=== PATIENT | male | born 1980 | race Caucasian/White ===

== ENCOUNTER 2018-01-27 13:41 | Inpatient (IN) | payer BC ==
[~2018-01-27] VITALS: Ht 185.4 cm; Wt 129.3 kg
[2018-01-27 14:58] LABS: Basophils # (auto) 0.1 uL; Basophils % (auto) 0.9 % (0.0-2.0); Eosinophils # (auto) 0.2 uL; Eosinophils % (auto) 2.2 % (0.0-7.0); Hematocrit 47.6 % (41.0-53.0); Hemoglobin 16.4 g/dL (13.5-17.5); Lymphocytes # (auto) 2.7 uL; Mean Corpuscular Hemoglobin 31.1 pg (28.0-32.0); Mean Corpuscular Hgb Conc. 34.6 g/dL (32.0-36.0); Mean Corpuscular Volume 90.1 fL (80.0-100.0); Monocytes # (auto) 0.6 uL; Monocytes % (auto) 7.2 % (0.0-12.0); Neutrophils # (auto) 4.6 uL; Neutrophils % (auto) 56.7 % (37.0-80.0); Nucleated Red Blood Cells % 0.2 %; Platelet Count (auto) 298 10^3/uL (140-450); Red Blood Cells 5.28 10^6/uL (4.5-5.90); White Blood Cell 8.1 10^3/uL (4.4-10.8)
[2018-01-27 15:15] LABS: Alanine Aminotransferase 40 U/L (16-61); Albumin 3.9 g/dL (3.4-5.0); Anion Gap 10 (5-15); Aspartate Aminotransferase 20 U/L (15-37); BUN/Creatinine Ratio 10.1; Blood Urea Nitrogen 10 mg/dL (7-18); Calcium 8.9 mg/dL (8.5-10.1); Carbon Dioxide 26 mmol/L (21-32); Chloride 106 mmol/L (98-107); GFR African American 109 mL/min; GFR Non-African American 90 mL/min; Glucose 84 mg/dL (74-106); Potassium 4.2 mmol/L (3.5-5.1); Sodium 142 mmol/L (136-145)
[2018-01-27 15:20] LABS: Alkaline Phosphatase 58 U/L (45-117); Bilirubin, Total 0.4 mg/dL (0.2-1.0); Total Protein 7.6 g/dL (6.4-8.2)
[2018-01-27] MEDS ORDERED: ASPirin 81 mg TAB PO ONE (16:00)
[2018-01-27] MEDS ORDERED: IOHEXOL 350 MG/ML 100ML IJ ONE (17:41)
[2018-01-27] MEDS ORDERED: MORPHINE SULFATE 8mg/ml INJ SDV IV PRN (22:00)
[2018-01-27] MEDS ORDERED: FUROSEMIDE 20 MG/2 ML VIAL IV ONE (22:00)
[2018-01-27] MEDS ORDERED: HYDROcodone-ACET 5/325MG TAB PO PRN (22:00)
[2018-01-27] MEDS ORDERED: ONDANSETRON HCL 4 MG/2 ML VIAL IV PRN (22:00)
[2018-01-27] MEDS ORDERED: NITROGLYCERIN 0.4 MG SL TAB SL PRN (22:00)
[2018-01-27] MEDS ORDERED: ATORVASTATIN 20 MG TAB PO SCH (22:00)
[2018-01-27] MEDS ORDERED: ACETAMINOPHEN 325 MG TAB PO PRN (22:00)
[2018-01-27] MEDS ORDERED: TEMAZEPAM 15 MG CAP PO PRN (22:00)
[2018-01-27] MEDS: FAMOTIDINE 20 MG TAB PO SCH (22:29)
[2018-01-27] MEDS: ENOXAPARIN SOD 40 MG/0.4 ML SYRINGE SC SCH (22:29)
[2018-01-27 23:53] VITALS: BP 120/68
[2018-01-28] MEDS ORDERED: IBUP800T24 PO (00:13)
[2018-01-28 05:38] LABS: Basophils # (auto) 0 uL; Basophils % (auto) 0.4 % (0.0-2.0); Eosinophils # (auto) 0.2 uL; Eosinophils % (auto) 2.1 % (0.0-7.0); Hematocrit 47.9 % (41.0-53.0); Hemoglobin 16.8 g/dL (13.5-17.5); Lymphocytes # (auto) 2.7 uL; Lymphocytes % (auto) 31.6 % (10.0-50.0); Mean Corpuscular Hemoglobin 31.7 pg (28.0-32.0); Mean Corpuscular Hgb Conc. 35.2 g/dL (32.0-36.0); Mean Corpuscular Volume 90.2 fL (80.0-100.0); Monocytes # (auto) 0.7 uL; Monocytes % (auto) 8.7 % (0.0-12.0); Neutrophils # (auto) 4.8 uL; Neutrophils % (auto) 57.2 % (37.0-80.0); Nucleated Red Blood Cells % 0.1 %; Platelet Count (auto) 292 10^3/uL (140-450); Red Blood Cells 5.31 10^6/uL (4.5-5.90); Red Cell Distribution Width 13.2 % (11.8-14.3); White Blood Cell 8.4 10^3/uL (4.4-10.8)
[2018-01-28 08:12] LABS: Cholesterol 238 mg/dL (< 200); HDL Cholesterol 31 mg/dL (40-59); LDL Cholesterol 164 mg/dL (< 100); Triglycerides 238 mg/dL (< 150)
[2018-01-28 09:00] VITALS: BP 123/71
[2018-01-28] MEDS ORDERED: ASPirin 81 mg TAB PO SCH (10:00)
[2018-01-28] MEDS: ENOXAPARIN SOD 40 MG/0.4 ML SYRINGE SC SCH (10:11)
[2018-01-28] MEDS: FAMOTIDINE 20 MG TAB PO SCH (10:11)
[2018-01-28 11:11] VITALS: BP 137/81
[2018-01-28] MEDS ORDERED: ALBUAER3 IN (12:50)
[2018-01-28 13:00] VITALS: BP 128/71
[2018-01-28] MEDS ORDERED: LEVOFLOXACIN 500 MG TAB PO ONE (13:00)
[2018-01-28] MEDS ORDERED: LEVO500T21 PO (13:03)
[2018-01-28] MEDS ORDERED: METH4PAK PO (13:03)
== END 2018-01-28 14:30 | disposition home or self-care (01) | DRG 203 ==
LOC: ER 13:41 → TELE 13:42 → TELE-WESTW 23:00
PROVIDERS: ADMIT Nurse Practitioner; ATTEND Internal Medicine
DX: J20.9 Acute bronchitis, unspecified (principal); E66.9 Obesity, unspecified; M10.9 Gout, unspecified; G47.00 Insomnia, unspecified; R07.89 Other chest pain; E78.5 Hyperlipidemia, unspecified; K57.90 Diverticulosis of intestine, part unspecified, without perforation or abscess without bleeding; R79.1 Abnormal coagulation profile; Z83.3 Family history of diabetes mellitus; Z68.37 Body mass index [BMI] 37.0-37.9, adult; Z80.8 Family history of malignant neoplasm of other organs or systems; Z71.89 Other specified counseling; Z79.899 Other long term (current) drug therapy
CPT/HCPCS: 36415; 71046; 71275; 80053; 80061; 83735; 83880; 84484; 85025; 85379; 93005; 93017; 93306; 94761; 96374